=== PATIENT | male | born 1990 ===

== ENCOUNTER → 2020-03-16 08:54 | Outpatient (CLI) | payer OTHER | END | disposition home or self-care (01) | LOC: LAB 08:54 | PROVIDERS: ATTEND Emergency Medicine Pediatric Emergency Medicine | DX: Z03.818 Encounter for observation for suspected exposure to other biological agents ruled out (principal) ==

== ENCOUNTER 2020-03-22 09:13 | Outpatient (CLI) | payer OTHER | END 2020-03-22 15:06 | disposition home or self-care (01) | LOC: LAB 09:13 | DX: Z03.818 Encounter for observation for suspected exposure to other biological agents ruled out (principal) ==

== ENCOUNTER 2020-03-23 08:29 | Outpatient (CLI) | payer OTHER | END 2020-03-23 18:00 | disposition home or self-care (01) | LOC: LAB 08:29 | DX: Z03.818 Encounter for observation for suspected exposure to other biological agents ruled out (principal) ==